=== PATIENT | female | born 1990 | race African-American/Black ===

== ENCOUNTER 2021-11-09 08:02 | Emergency (ER) | payer BC, OTHER, SELFPAY ==
--- NOTE | ~2021-11-09 | XR_ITS ---
XR knee RT 3V 11/09/2021 08:40 INDICATION: Right knee pain PROCEDURE: 3 views right knee COMPARISON: No prior studies for comparison. FINDINGS: Fracture, dislocation or subluxation is not identified. No significant joint effusion. Ther e is an unfused tibial apophysis. The soft tissues appear within normal limits. No foreign bodies ar e identified. IMPRESSION: 1: NO ACUTE BONE OR JOINT ABNORMALITY IDENTIFIED. Reviewed, dictated and finalized at location A.
[2021-11-09 08:06] VITALS: BP 126/99; PULSE 108; RESP 18; TEMP 37.2; O2SAT 99
--- NOTE | 2021-11-09 08:18 | PC.NURSE ---
Dr. Healy at bedside to assess pt.
--- NOTE | 2021-11-09 08:28 | ED.LOWEXIN ---
HPI - Extremity Injury (Lower) General Chief Complaint: Extremity Injury, Lower Stated Complaint: Right knee pain Time Seen by Provider: 11/09/21 08:27 Source: patient Mode of arrival: ambulatory Limitations: no limitations History of Present Illness HPI Narrative: Patient is 31 years old -[place] female presents with right knee pain anteriorly start 2-1/2 weeks ago possible frequent twist on ice. Patient denies any specific trauma or fall. Was seen by her family physician at that time and the started on anti-inflammatory medication and baclofen. Pain increases with knee flexion. Related Data Home Medications Medication Instructions Recorded Confirmed acetaminophen [Tylenol] 325 mg PO PRN 11/09/21 baclofen 20 mg PO DAILY 11/09/21 Allergies Allergy/AdvReac Type Severity Reaction Status Date / Time No Known Allergies Allergy Verified 11/09/21 08:14 Review of Systems Review of Systems: CONSTITUTIONAL: Denies fever, chills, or sweats. EYES: Denies visual changes, redness, or discharge. ENT: Denies rhinorrhea, congestion, sore throat, or otalgia. CARDIOVASCULAR: Denies chest pain, palpitations, or edema. RESPIRATORY: Denies cough or dyspnea. GASTROINTESTINAL: Denies abdominal pain, nausea, vomiting, or diarrhea. GENITOURINARY: Denies dysuria or hematuria. SKIN: Denies rash or itching. MUSCULOSKELETAL: Denies back pain, joint pain, or myalgia. NEUROLOGIC: Denies headache, numbness, or weakness. PSYCHIATRIC: Denies anxiety or depression. Exam Narrative: General appearance: Well-developed, well-nourished Skin: Normal color Head: Normocephalic, nontraumatic Vascular: Normal peripheral pulses, normal capillary refill. Musculoskeletal: Right knee exam showed slight swelling anteriorly, diffuse tenderness anteriorly, no bruises, no erythema, no open wounds, limited range of flexion. Neurologic: Alert and oriented ?3, [employer] is normal as tested, no gross motor deficit Course Course Emergency Course: Stable Vital Signs Vital signs: Vital Signs Temperature 37.2 C 11/09/21 08:06 Pulse Rate 108 H 11/09/21 08:06 Respiratory Rate 18 11/09/21 08:06 Blood Pressure 126/99 H 11/09/21 08:06 Pulse Oximetry 99 11/09/21 08:06 Temperature 37.2 C 11/09/21 08:06 Pulse Rate 108 H 11/09/21 08:06 Respiratory Rate 18 11/09/21 08:06 Blood Pressure 126/99 H 11/09/21 08:06 Pulse Oximetry 99 11/09/21 08:06 MDM - Extremity Injury (Lower) MDM Narrative Medical decision making narrative: Sprain/strain right knee is my concern. Differential Diagnosis Differential diagnosis: Likely other (Right knee sprain, strain) Imaging Data Radiologist's impression: Impressions Knee X-Ray 11/09/21 08:51 IMPRESSION: 1: NO ACUTE BONE OR JOINT ABNORMALITY IDENTIFIED. Critical Care Time Critical Care Time Critical Care Time: No Discharge Plan Discharge Clinical Impression: Right knee sprain Qualifiers: Encounter type: subsequent encounter Involved ligament of knee: unspecified ligament Qualified Code(s): S83.91XD - Sprain of unspecified site of right knee, subsequent encounter Patient Disposition: Home, Self-Care Condition: Stable Instructions: Antibiotic Form, Knee Sprain (ED), Knee Immobilizer (ED) Additional Instructions: Return if symptoms are worsening , call your family physician for appointment, take Tylenol as as needed for aches and pain, continue home medications. Prescriptions: New naproxen 500 mg tablet 500 mg PO BID PRN (Reason: pain) Qty: 14 RF: 0 No Action acetaminophen [Tylenol] 325 mg Tablet 325 mg PO PRN RF: 0 baclofen 20 mg PO DAILY RF: 0 Follow-up
--- NOTE | 2021-11-09 08:30 | PC.NURSE ---
Patient off unit to Radiology for knee xray.
--- NOTE | 2021-11-09 09:30 | PC.NURSE ---
Patient declines knee immobilizer as she reports that she will be unable to utilize it while working due to the nature of her job.
--- NOTE | 2021-11-09 09:45 | PC.NURSE ---
Dr. Healy back at bedside to update patient on xray results.
--- NOTE | 2021-11-09 09:53 | PC.NURSE ---
Patient refused discharge vital signs.
== END 2021-11-09 09:55 | disposition home or self-care (01) ==
PROVIDERS: Emergency Provider Emergency Medicine
DX: S83.91XA Sprain of unspecified site of right knee, initial encounter (principal); X58.XXXA Exposure to other specified factors, initial encounter
CPT/HCPCS: 73562; 99283